=== PATIENT | female | born 2000 | race Two or more races ===

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

== ENCOUNTER 2022-10-16 18:44 | Emergency (ER) | payer MEDICAID, OTHER ==
[~2022-10-16] VITALS: Ht 162.6 cm; Wt 59.0 kg
[2022-10-16 18:48] VITALS: BP 110/72
== END 2022-10-16 21:03 | disposition home or self-care (01) ==
LOC: ER 18:44
DX: O26.891 Other specified pregnancy related conditions, first trimester (principal); O99.341 Other mental disorders complicating pregnancy, first trimester; Z59.00 Homelessness unspecified; Z3A.08 8 weeks gestation of pregnancy
CPT/HCPCS: 99283

== ENCOUNTER 2022-11-04 22:50 | Emergency (ER) | payer MEDICAID ==
[~2022-11-04] VITALS: Ht 162.6 cm; Wt 64.1 kg
[2022-11-04 23:58] VITALS: BP 132/81
== END 2022-11-05 01:40 | disposition left against medical advice (07) ==
LOC: ER 22:50
DX: Z76.0 Encounter for issue of repeat prescription (principal)
CPT/HCPCS: 81025; 99282

== ENCOUNTER 2022-11-22 16:20 | Emergency (ER) | payer MEDICAID, OTHER ==
[~2022-11-22] VITALS: Ht 172.7 cm; Wt 64.0 kg
[2022-11-22] MEDS ORDERED: OLANZAPINE 10 MG/VIAL IM ONE (20:15)
[2022-11-22 20:28] LABS: BASOPHILS % 0.6 % (0.0-2.0); EOSINOPHILS % 0.2 % (0.0-5.0); HEMATOCRIT. 40.4 % (36.0-48.0); HEMOGLOBIN. 13.8 g/dL (12.0-16.0); LYMPHOCYTES % 16.1 % (20.0-50.0); MEAN CORPUSCULAR HEMOGLOBIN 33.6 pg (28.0-32.0); MEAN CORPUSCULAR VOLUME 98.3 fL (81.0-99.0); MEAN PLATELET VOLUME 8.2 fl (7.4-10.4); MONOCYTES % 10.8 % (2.0-8.0); NEUTROPHILS % 72.3 % (40.0-76.0); PLATELET 232 x1000/uL (130-400); RED BLOOD CELL COUNT 4.11 mill/uL (4.2-5.4); RED CELL DISTRIBUTION WIDTH 12.4 % (11.6-14.6)
[2022-11-22 20:34] LABS: HCG SCREEN POSITIVE
[2022-11-22 20:36] LABS: CHLORIDE 104 mEq/L (98-107)
[2022-11-22 21:02] LABS: ETHANOL BLOOD < 10 mg/dL
[2022-11-22 21:39] LABS: CLARITY URINE CLOUDY (CLEAR); COLOR URINE YELLOW (YELLOW); KETONES URINE 4+ (NEGATIVE); LEUKOCYTE ESTERASE URINE TRACE (NEGATIVE); NITRITE URINE NEGATIVE (NEGATIVE); OCCULT BLOOD URINE NEGATIVE (NEGATIVE); PH URINE 5.5 (4.5-8.0); PROTEIN URINE TRACE (NEGATIVE)
[2022-11-22 21:51] LABS: *BARBITURATES SCREEN URINE NEGATIVE (NEGATIVE); *BENZODIAZEPINES SCREEN URINE NEGATIVE (NEGATIVE); METHADONE URINE SCREEN NEGATIVE (NEGATIVE); OPIATES URINE SCREEN NEGATIVE (NEGATIVE); PHENCYCLIDINE URINE SCREEN NEGATIVE (NEGATIVE)
[2022-11-22 21:56] LABS: *AMPHETAMINES SCREEN URINE PRESUMTIVE POSITIVE (NEGATIVE)
[2022-11-22 21:57] LABS: *COCAINE SCREEN URINE PRESUMTIVE POSITIVE (NEGATIVE); CANNABINOID URINE SCREEN PRESUMTIVE POSITIVE (NEGATIVE)
[2022-11-23] MEDS ORDERED: OLANZAPINE 5MG TABLET PO SCH (09:00)
[2022-11-23] MEDS ORDERED: ACETAMINOPHEN 325MG TABLET PO PRN (09:30)
[2022-11-23] MEDS ORDERED: ONDANSETRON HCL 4MG/2ML INJ IV PRN (09:30)
[2022-11-23 13:08] VITALS: BP 11/81
== END 2022-11-23 13:09 | disposition home or self-care (01) ==
LOC: ER 16:20 → UNDOADMIN 11-23 02:20 → 3WST 11-23 02:20 → MICUSO 11-23 02:26 → 3WST 11-23 02:26 → ER 11-23 13:09
DX: F31.9 Bipolar disorder, unspecified (principal); F19.10 Other psychoactive substance abuse, uncomplicated; Z20.822 Contact with and (suspected) exposure to COVID-19
CPT/HCPCS: 36415; 80053; 80305; 80320; 81003; 81025; 84703; 85025; 87426; 96372; 99285; C9803; J3490; Z7610; G0480

== ENCOUNTER 2023-03-14 09:08 | Emergency (ER) | payer MEDICAID ==
[~2023-03-14] VITALS: Ht 162.6 cm; Wt 72.7 kg
[~2023-03-14 09:08] MED LIST: AMOX-424 MT; DOXY100C5 MT; HYDR-3782 MT; IBUP-2028 MT; IBUP-2029 MT; NITR-87 MT; RISP05 PO
[2023-03-14 09:10] VITALS: BP 121/68; RESP 18; TEMP 98.3; O2SAT 98
[2023-03-14 09:12] VITALS: PULSE 115
[2023-03-14 12:09] LABS: *AMPHETAMINES SCREEN URINE NEGATIVE (NEGATIVE); *BARBITURATES SCREEN URINE NEGATIVE (NEGATIVE); *BENZODIAZEPINES SCREEN URINE NEGATIVE (NEGATIVE); *COCAINE SCREEN URINE NEGATIVE (NEGATIVE); CANNABINOID URINE SCREEN NEGATIVE (NEGATIVE); METHADONE URINE SCREEN NEGATIVE (NEGATIVE); OPIATES URINE SCREEN NEGATIVE (NEGATIVE); PHENCYCLIDINE URINE SCREEN NEGATIVE (NEGATIVE)
== END 2023-03-14 10:02 | disposition home or self-care (01) ==
LOC: ER 09:13
DX: O26.93 Pregnancy related conditions, unspecified, third trimester (principal); Z00.00 Encounter for general adult medical examination without abnormal findings; Z79.899 Other long term (current) drug therapy; Z88.8 Allergy status to other drugs, medicaments and biological substances; Z3A.33 33 weeks gestation of pregnancy
CPT/HCPCS: 80305; 81025; 99283